=== PATIENT | male | born 1945 | race African-American/Black ===

== ENCOUNTER 2023-08-25 10:47 | Inpatient (IN) | payer OTHER ==
[2023-08-25] MEDS: LACTATED RINGERS SOLUTION 1000 ML INFUS.BAG IV ONE (12:00)
[2023-08-25 12:14] LABS: BASO % 0.6 % (0-2.0); EOS % 1.2 % (0-4.5); HEMATOCRIT 38.4 % (35.4-49); HEMOGLOBIN 12.6 GM/dL (11.7-16.9); MCH 27.8 pg (25.7-33.7); MCHC 32.9 g/dl (32.0-35.9); MEAN CELL VOLUME 84.6 fl (80-96); MEAN PLT VOLUME 7.5 fl (7.5-11.1); MONO % 3.1 % (3.8-10.2); NEUT % 75.1 % (42.8-82.8); PLATELET COUNT 360 10^3/uL (134-434); RBC 4.54 M/mm3 (4.00-5.60); RDW 17.3 % (11.9-15.9); WHITE BLOOD COUNT 7.3 K/mm3 (4.0-10.0)
[2023-08-25 12:44] LABS: VENOUS BASE EXCESS 0.9 mmol/L (-2-2); VENOUS O2 SATURATION 65.8 % (70-80); VENOUS PCO2 47.5 mmHg (38-52); VENOUS PH 7.369 (7.310-7.410)
[2023-08-25 13:05] LABS: INR 1.05 (0.83-1.09); PROTHROMBIN TIME (PATIENT) 12.2 SEC (9.7-13.0)
[2023-08-25 13:08] LABS: ACTIVATED PTT 33.1 SECONDS (25.2-36.5)
[2023-08-25 14:17] LABS: POTASSIUM 3.7 mmol/L (3.5-5.1)
[2023-08-25 14:18] LABS: ALBUMIN 3.2 g/dl (3.4-5.0); BILIRUBIN,TOTAL 0.8 mg/dL (0.2-1); BLOOD UREA NITROGEN 9.2 mg/dL (7-18); CALCIUM 8.6 mg/dL (8.5-10.1); CREATININE 0.5 mg/dL (0.55-1.3); MAGNESIUM 2.2 mg/dL (1.8-2.4); PHOSPHOROUS 2.8 mg/dL (2.5-4.9); TOT PROT 8.4 g/dl (6.4-8.2)
[2023-08-25 15:13] LABS: EPI CELLS 13 /uL (0-25.1); HYALINE CASTS 0 /uL (0-3.1); URINE APPEARANCE CLEAR; URINE BACTERIA 22 /uL (0-1359); URINE BILIRUBIN NEGATIVE (NEGATIVE); URINE COLOR YELLOW; URINE GLUCOSE (UA) NEGATIVE (NEGATIVE); URINE KETONE TRACE (NEGATIVE); URINE LEUK ESTERASE NEGATIVE (NEGATIVE); URINE NITRITE NEGATIVE (NEGATIVE); URINE PROTEIN NEGATIVE (NEGATIVE); URINE RBC 53 /uL (0-23.9); URINE UROBILINOGEN 0.2 mg/dL (0.2-1.0); URINE WBC 5 /uL (0-25.8)
[2023-08-25] MEDS ORDERED: levETIRAcetam 500 MG/5 ML INJECTION VIAL IVPB ONE (16:26)
[2023-08-25] MEDS: levETIRAcetam 500 MG/5 ML INJECTION VIAL IVPB ONE (18:01)
[2023-08-25] MEDS: levETIRAcetam 500 MG/5 ML INJECTION VIAL IVPB SCH (22:09)
[2023-08-25] MEDS: MINERAL OIL ENEMA 133 ML ENEMA RC SCH (22:33)
[2023-08-26] MEDS ORDERED: levETIRAcetam 500 MG/5 ML INJECTION VIAL IVPB SCH ×2 (02:08→10:00)
[2023-08-26] MEDS: levETIRAcetam 500 MG/5 ML INJECTION VIAL IVPB ONE ×2 (03:07→04:42)
[2023-08-26] MEDS ORDERED: levETIRAcetam 500 MG/5 ML INJECTION VIAL IVPB ONE (04:32)
[2023-08-26] MEDS: MINERAL OIL ENEMA 133 ML ENEMA RC ONE (09:47)
[2023-08-26] MEDS ORDERED: ZINC SULFATE 220 MG CAPSULE (FP) ONE (10:16)
[2023-08-26] MEDS: FERROUS SO4 325 MG TABLET (FP) PO SCH (10:18)
[2023-08-26] MEDS: POLYETHYLENE GLYCOL (HEALTHYLAX) 3350 17 GM PACKET PO SCH (10:18)
[2023-08-26] MEDS: levETIRAcetam 500 MG/5 ML INJECTION VIAL IVPB SCH (10:18)
[2023-08-26] MEDS: amLODIPine BESYLATE 5 MG TABLET (FP) PO SCH (10:18)
[2023-08-26] MEDS: ZINC SULFATE 220 MG CAPSULE (FP) PO SCH (10:18)
[2023-08-26] MEDS: FLUTICASONE PROP 0.05% 16 GM NASAL SPRAY NS SCH (10:46)
[2023-08-26 12:32] LABS: BASO % 0.8 % (0-2.0); EOS % 1.4 % (0-4.5); HEMATOCRIT 37.7 % (35.4-49); HEMOGLOBIN 12.1 GM/dL (11.7-16.9); LYMPH % 25.4 % (8-40); MCH 27.3 pg (25.7-33.7); MCHC 32.1 g/dl (32.0-35.9); MEAN CELL VOLUME 84.8 fl (80-96); MEAN PLT VOLUME 7.2 fl (7.5-11.1); NEUT % 67.4 % (42.8-82.8); PLATELET COUNT 314 10^3/uL (134-434); RBC 4.44 M/mm3 (4.00-5.60); RDW 17.3 % (11.9-15.9)
[2023-08-26 13:12] LABS: POTASSIUM 3.7 mmol/L (3.5-5.1)
[2023-08-26 13:19] LABS: ALBUMIN 2.9 g/dl (3.4-5.0); BLOOD UREA NITROGEN 5.9 mg/dL (7-18)
[2023-08-26 13:20] LABS: CALCIUM 8.5 mg/dL (8.5-10.1); MAGNESIUM 1.6 mg/dL (1.8-2.4)
[2023-08-26 13:21] LABS: CREATININE 0.4 mg/dL (0.55-1.3); PHOSPHOROUS 3.3 mg/dL (2.5-4.9)
[2023-08-26 13:22] LABS: BILIRUBIN,TOTAL 0.9 mg/dL (0.2-1); TOT PROT 7.6 g/dl (6.4-8.2)
[2023-08-26] MEDS: ENOXAPARIN NA (PORCINE) 40 MG/0.4 ML DISP.SYRIN SQ SCH (16:30)
[2023-08-26] MEDS ORDERED: ENOXAPARIN NA (PORCINE) 40 MG/0.4 ML DISP.SYRIN SQ ONE (16:53)
[2023-08-26 23:39] VITALS: BMI 13.6
[2023-08-27] MEDS: levETIRAcetam 500 MG/5 ML ORAL SOLUTION (UNIT-DOSE CUPS) PO SCH (09:58)
[2023-08-27 10:43] LABS: POTASSIUM 4.4 mmol/L (3.5-5.1)
[2023-08-27 10:45] LABS: BASO % 0.7 % (0-2.0); EOS % 2.2 % (0-4.5); HEMATOCRIT 43.3 % (35.4-49); HEMOGLOBIN 13.9 GM/dL (11.7-16.9); LYMPH % 28.6 % (8-40); MCH 27.2 pg (25.7-33.7); MCHC 32.1 g/dl (32.0-35.9); MEAN CELL VOLUME 84.8 fl (80-96); MEAN PLT VOLUME 8.4 fl (7.5-11.1); MONO % 4.6 % (3.8-10.2); NEUT % 63.9 % (42.8-82.8); PLATELET COUNT 324 10^3/uL (134-434); RBC 5.11 M/mm3 (4.00-5.60); RDW 17.8 % (11.9-15.9); WHITE BLOOD COUNT 6.5 K/mm3 (4.0-10.0)
[2023-08-27 10:53] LABS: ALBUMIN 3.1 g/dl (3.4-5.0); BLOOD UREA NITROGEN 11.8 mg/dL (7-18); CALCIUM 9.3 mg/dL (8.5-10.1)
[2023-08-27 10:56] LABS: CREATININE 0.4 mg/dL (0.55-1.3); PHOSPHOROUS 3.6 mg/dL (2.5-4.9)
[2023-08-27 10:57] LABS: BILIRUBIN,TOTAL 1.1 mg/dL (0.2-1); TOT PROT 8.4 g/dl (6.4-8.2)
[2023-08-27 15:54] VITALS: BP 122/96; PULSE 89; RESP 20; TEMP 97.5
== END 2023-08-27 16:47 | disposition home or self-care (01) | DRG 100 ==
LOC: JER 10:47 → JERBED 18:01 → OBSVTOIN 22:36 → J4W 08-26 21:02
PROVIDERS: ADMIT Internal Medicine; ATTEND Internal Medicine
DX: R56.9 Unspecified convulsions (principal); L89.153 Pressure ulcer of sacral region, stage 3; G91.9 Hydrocephalus, unspecified; K59.00 Constipation, unspecified; I10 Essential (primary) hypertension; Z87.820 Personal history of traumatic brain injury; E11.9 Type 2 diabetes mellitus without complications
CPT/HCPCS: 0241U-QW; 36415; 70450-TC; 70551-TC; 71045-TC-FY; 74177-TC; 80053; 80061; 81003; 82803; 83605; 83690; 83735; 84100; 84443; 84484; 85025; 85610; 85730; 86850; 86900; 86901; 87040; 87086; 93005; 93010; 99285-25; G0378; Q9967

== ENCOUNTER 2023-10-16 21:57 | Inpatient (IN) | payer OTHER ==
[2023-10-16] MEDS ORDERED: MAGNESIUM HYDROX 2400MG/30ML ORAL SUSPENSION 30 ML CUP ONE (22:04)
[2023-10-17 00:51] LABS: BASO % 0.5 % (0-2.0); LYMPH % 29.1 % (8-40); MCH 27.3 pg (25.7-33.7); MCHC 32.4 g/dl (32.0-35.9); MEAN CELL VOLUME 84.3 fl (80-96); MEAN PLT VOLUME 7.6 fl (7.5-11.1); MONO % 6.4 % (3.8-10.2); PLATELET COUNT 322 10^3/uL (134-434); RBC 4.39 M/mm3 (4.00-5.60); RDW 17.1 % (11.9-15.9); WHITE BLOOD COUNT 7.3 K/mm3 (4.0-10.0)
[2023-10-17 01:05] LABS: CHLORIDE 105 mmol/L (98-107); SODIUM 139 mmol/L (136-145)
[2023-10-17 01:09] LABS: ALBUMIN 2.8 g/dl (3.4-5.0); BLOOD UREA NITROGEN 12.2 mg/dL (7-18); CALCIUM 8.4 mg/dL (8.5-10.1); CO2 27 mmol/L (21-32); GLUCOSE,RANDOM 118 mg/dL (74-106)
[2023-10-17 01:11] LABS: CREATININE 0.4 mg/dL (0.55-1.3); SGOT/AST 14 U/L (15-37); SGPT/ALT 15 U/L (13-61)
[2023-10-17 01:13] LABS: BILIRUBIN,TOTAL 0.4 mg/dL (0.2-1); TOT PROT 6.7 g/dl (6.4-8.2)
[2023-10-17 01:15] LABS: ALK PHOS 69 U/L (45-117)
[2023-10-17 01:16] LABS: ANION GAP 6 mmol/L (4-13); POTASSIUM 2.8 mmol/L (3.5-5.1)
[2023-10-17] MEDS ORDERED: POTASSIUM CHLORIDE ORAL LIQUID 20 MEQ/15 ML ONE (01:32)
[2023-10-17] MEDS: POTASSIUM CHLORIDE ORAL LIQUID 20 MEQ/15 ML PO ONE (02:17)
[2023-10-17] MEDS: KCL 10 MEQ IVPB 10 MEQ/100 ML INFUS.BAG IVPB SCH (02:17)
[2023-10-17] MEDS ORDERED: AMPICILLIN NA/SULBACTAM NA 1.5 GM VIAL ONE (02:53)
[2023-10-17] MEDS: AMPICILLIN NA/SULBACTAM NA 1.5 GM in SODIUM CHLORIDE 100 ML IVPB ONE (03:17)
[2023-10-17] MEDS ORDERED: KCL 10 MEQ IVPB 10 MEQ/100 ML INFUS.BAG IVPB ONE ×2 (03:45→04:58)
[2023-10-17 03:56] LABS: EPI CELLS 16 /uL (0-25.1); HYALINE CASTS 1 /uL (0-3.1); PH,URINE 6.5 (5.0-8.0); URINE APPEARANCE CLEAR; URINE BACTERIA 6 /uL (0-1359); URINE BILIRUBIN NEGATIVE (NEGATIVE); URINE COLOR YELLOW; URINE GLUCOSE (UA) NEGATIVE (NEGATIVE); URINE KETONE TRACE (NEGATIVE); URINE LEUK ESTERASE NEGATIVE (NEGATIVE); URINE NITRITE NEGATIVE (NEGATIVE); URINE PROTEIN TRACE (NEGATIVE); URINE RBC 155 /uL (0-23.9); URINE UROBILINOGEN 0.2 mg/dL (0.2-1.0); URINE WBC 12 /uL (0-25.8)
[2023-10-17 04:47] LABS: MAGNESIUM 1.8 mg/dL (1.8-2.4)
[2023-10-17] MEDS: ACETAMINOPHEN 1000 MG/100 ML BAG IVPB PRN (04:47)
[2023-10-17] MEDS: SODIUM CHLORIDE 1,000 ML with POTASSIUM CHLORIDE 40 MEQ IV SCH (04:47)
[2023-10-17] MEDS: levETIRAcetam 500 MG/5 ML INJECTION VIAL IVPB ONE ×2 (06:37→08:14)
[2023-10-17 07:44] LABS: HEMOGLOBIN 14.3 GM/dL (11.7-16.9); MCH 27.4 pg (25.7-33.7); MCHC 32.4 g/dl (32.0-35.9); MEAN CELL VOLUME 84.6 fl (80-96); MEAN PLT VOLUME 7.6 fl (7.5-11.1); PLATELET COUNT 321 10^3/uL (134-434); RDW 16.9 % (11.9-15.9); WHITE BLOOD COUNT 7.5 K/mm3 (4.0-10.0)
[2023-10-17 07:51] LABS: BLOOD UREA NITROGEN 8.3 mg/dL (7-18); CALCIUM 8.6 mg/dL (8.5-10.1); MAGNESIUM 1.9 mg/dL (1.8-2.4)
[2023-10-17 07:55] LABS: BILIRUBIN,TOTAL 0.4 mg/dL (0.2-1); CREATININE 0.4 mg/dL (0.55-1.3); PHOSPHOROUS 2.3 mg/dL (2.5-4.9); TOT PROT 7.4 g/dl (6.4-8.2)
[2023-10-17 08:06] LABS: POTASSIUM 4.3 mmol/L (3.5-5.1)
[2023-10-17] MEDS: AMPICILLIN NA/SULBACTAM NA 1.5 GM in SODIUM CHLORIDE 100 ML IVPB SCH (09:05)
[2023-10-17] MEDS ORDERED: ENOXAPARIN NA (PORCINE) 40 MG/0.4 ML DISP.SYRIN SQ SCH (10:00)
[2023-10-17] MEDS: MAGNESIUM SULFATE IN WATER 2 GM/50 ML IVPB IVPB ONE (11:22)
[2023-10-17] MEDS: NAPH,MB-DB/K PH,MBDB POWDER PACKET PO ONE (11:29)
[2023-10-17] MEDS: VANCOMYCIN ORAL SOLUTION 125 MG/2.5 ML PO SCH ×2 (11:30→18:29)
[2023-10-17] MEDS: POVIDONE-IODINE OINTMENT 10% - 28.4 GM TUBE TP SCH (11:31)
[2023-10-17 12:15] LABS: POTASSIUM 3.9 mmol/L (3.5-5.1)
[2023-10-17 12:17] LABS: BLOOD UREA NITROGEN 6.6 mg/dL (7-18); CALCIUM 8.6 mg/dL (8.5-10.1); MAGNESIUM 2.1 mg/dL (1.8-2.4)
[2023-10-17 12:21] LABS: CREATININE 0.3 mg/dL (0.55-1.3)
[2023-10-17] MEDS: POTASSIUM CHLORIDE 40 MEQ in SODIUM CHLORIDE 1,000 ML IV SCH (12:25)
[2023-10-17] MEDS: levETIRAcetam 500 MG/5 ML INJECTION VIAL IVPB SCH (12:25)
[2023-10-17] MEDS: KETOROLAC TROMETHAMINE 15 MG/ML VIAL IVPUSH ONE (16:41)
[2023-10-18 07:47] LABS: BASO % 0.8 % (0-2.0); EOS % 3.8 % (0-4.5); HEMATOCRIT 34.8 % (35.4-49); HEMOGLOBIN 11.7 GM/dL (11.7-16.9); LYMPH % 34.1 % (8-40); MCH 28.1 pg (25.7-33.7); MCHC 33.5 g/dl (32.0-35.9); MEAN CELL VOLUME 83.9 fl (80-96); MEAN PLT VOLUME 7.7 fl (7.5-11.1); MONO % 5.4 % (3.8-10.2); NEUT % 55.9 % (42.8-82.8); PLATELET COUNT 316 10^3/uL (134-434); RBC 4.15 M/mm3 (4.00-5.60); RDW 17.4 % (11.9-15.9); WHITE BLOOD COUNT 6.4 K/mm3 (4.0-10.0)
[2023-10-18 08:02] LABS: POTASSIUM 4.3 mmol/L (3.5-5.1)
[2023-10-18 08:06] LABS: BLOOD UREA NITROGEN 3.2 mg/dL (7-18); CALCIUM 8.5 mg/dL (8.5-10.1)
[2023-10-18 08:07] LABS: ALBUMIN 2.6 g/dl (3.4-5.0)
[2023-10-18 08:10] LABS: BILIRUBIN,TOTAL 0.5 mg/dL (0.2-1); CREATININE 0.3 mg/dL (0.55-1.3)
[2023-10-18 08:11] LABS: TOT PROT 6.6 g/dl (6.4-8.2)
[2023-10-18] MEDS: amLODIPine BESYLATE 5 MG TABLET (FP) PO SCH (09:37)
[2023-10-18] MEDS: POLYETHYLENE GLYCOL (HEALTHYLAX) 3350 17 GM PACKET PO SCH (10:24)
[2023-10-19 07:27] LABS: BASO % 0.6 % (0-2.0); EOS % 4.1 % (0-4.5); HEMATOCRIT 33.8 % (35.4-49); HEMOGLOBIN 11.1 GM/dL (11.7-16.9); LYMPH % 26.9 % (8-40); MCH 27.9 pg (25.7-33.7); MCHC 32.9 g/dl (32.0-35.9); MEAN CELL VOLUME 84.9 fl (80-96); MEAN PLT VOLUME 7.9 fl (7.5-11.1); MONO % 7.1 % (3.8-10.2); NEUT % 61.3 % (42.8-82.8); PLATELET COUNT 335 10^3/uL (134-434); RBC 3.99 M/mm3 (4.00-5.60); RDW 17.1 % (11.9-15.9)
[2023-10-19 07:53] LABS: POTASSIUM 3.7 mmol/L (3.5-5.1)
[2023-10-19 08:08] LABS: ALBUMIN 2.6 g/dl (3.4-5.0); CALCIUM 8.3 mg/dL (8.5-10.1)
[2023-10-19 08:10] LABS: BLOOD UREA NITROGEN 5.6 mg/dL (7-18)
[2023-10-19 08:11] LABS: CREATININE 0.3 mg/dL (0.55-1.3)
[2023-10-19 08:13] LABS: BILIRUBIN,TOTAL 0.3 mg/dL (0.2-1); TOT PROT 6.4 g/dl (6.4-8.2)
[2023-10-19] MEDS: NYSTATIN 100,000 UNIT/GM TOPICAL CREAM 15 GM TUBE TP SCH (13:07)
[2023-10-19 15:41] VITALS: BMI 13.4
[2023-10-19] MEDS: levETIRAcetam 500 MG TABLET (FP) PO SCH (15:45)
[2023-10-19] MEDS: AMINO ACIDS/PROTEIN HYDROLYS 30 ML LIQUID.PKT PO SCH (17:48)
[2023-10-20 07:12] LABS: BASO % 0.4 % (0-2.0); EOS % 3.1 % (0-4.5); HEMATOCRIT 33.3 % (35.4-49); HEMOGLOBIN 10.9 GM/dL (11.7-16.9); LYMPH % 31.2 % (8-40); MCH 27.8 pg (25.7-33.7); MCHC 32.7 g/dl (32.0-35.9); MEAN CELL VOLUME 85.1 fl (80-96); MEAN PLT VOLUME 7.7 fl (7.5-11.1); MONO % 7.2 % (3.8-10.2); NEUT % 58.1 % (42.8-82.8); PLATELET COUNT 311 10^3/uL (134-434); RBC 3.92 M/mm3 (4.00-5.60); RDW 17.3 % (11.9-15.9)
[2023-10-20 07:25] LABS: POTASSIUM 3.7 mmol/L (3.5-5.1)
[2023-10-20 07:33] LABS: ALBUMIN 2.5 g/dl (3.4-5.0); BLOOD UREA NITROGEN 6.9 mg/dL (7-18); CALCIUM 8.3 mg/dL (8.5-10.1)
[2023-10-20 07:36] LABS: CREATININE 0.3 mg/dL (0.55-1.3)
[2023-10-20 07:38] LABS: BILIRUBIN,TOTAL 0.5 mg/dL (0.2-1); TOT PROT 6.3 g/dl (6.4-8.2)
[2023-10-20] MEDS: ZINC SULFATE 220 MG CAPSULE (FP) PO SCH (09:40)
[2023-10-20] MEDS: ASCORBIC ACID 500 MG TABLET (FP) PO SCH (09:40)
[2023-10-20] MEDS: MULTIVITAMINS (DAILY MVI) TABLET (FP) PO SCH (09:40)
[2023-10-20 11:53] VITALS: BP 124/69; PULSE 67; RESP 16; TEMP 97.9
== END 2023-10-20 11:24 | disposition home or self-care (01) | DRG 388 ==
LOC: JER 21:57 → JERBED 10-17 01:33 → J4W 10-17 06:17
PROVIDERS: ADMIT Internal Medicine; ATTEND Internal Medicine
DX: K56.41 Fecal impaction (principal); L89.154 Pressure ulcer of sacral region, stage 4; R64 Cachexia; E44.0 Moderate protein-calorie malnutrition; Z68.1 Body mass index [BMI] 19.9 or less, adult; E11.9 Type 2 diabetes mellitus without complications; R56.9 Unspecified convulsions; I10 Essential (primary) hypertension; E87.6 Hypokalemia
CPT/HCPCS: 0241U-QW; 36415; 74177-TC; 80048; 80053; 81003; 82272; 83605; 83690; 83735; 84100; 84484; 85025; 85027; 87045; 87046; 87086; 87324; 87425; 87449; 87493; 87798; 93005; 93010; 99285-25; J0131; Q9967

== ENCOUNTER 2023-12-16 08:19 | Inpatient (IN) | payer OTHER ==
[2023-12-16] MEDS ORDERED: ACETAMINOPHEN INJECTION 100 ML IVPB ONE (10:03)
[2023-12-16] MEDS: ACETAMINOPHEN 1000 MG/100 ML BAG IVPB ONE (10:09)
[2023-12-16 10:10] LABS: BASO % 0.7 % (0-2.0); EOS % 2.9 % (0-4.5); HEMOGLOBIN 12.1 GM/dL (11.7-16.9); LYMPH % 16.6 % (8-40); MCH 27.9 pg (25.7-33.7); MCHC 31.8 g/dl (32.0-35.9); MEAN CELL VOLUME 87.6 fl (80-96); MEAN PLT VOLUME 7.6 fl (7.5-11.1); MONO % 8.7 % (3.8-10.2); NEUT % 71.1 % (42.8-82.8); PLATELET COUNT 283 10^3/uL (134-434); RBC 4.34 M/mm3 (4.00-5.60); RDW 16.1 % (11.9-15.9); WHITE BLOOD COUNT 14.8 K/mm3 (4.0-10.0)
[2023-12-16 10:25] LABS: ALBUMIN 2.8 g/dl (3.4-5.0); CALCIUM 8.4 mg/dL (8.5-10.1)
[2023-12-16 10:26] LABS: BLOOD UREA NITROGEN 33.7 mg/dL (7-18); MAGNESIUM 2.5 mg/dL (1.8-2.4)
[2023-12-16 10:28] LABS: CREATININE 2.9 mg/dL (0.55-1.3)
[2023-12-16 10:30] LABS: TOT PROT 7.2 g/dl (6.4-8.2)
[2023-12-16 11:00] LABS: POTASSIUM 4.2 mmol/L (3.5-5.1)
[2023-12-16 11:01] LABS: CALCIUM 8.6 mg/dL (8.5-10.1)
[2023-12-16 11:05] LABS: CREATININE 2.9 mg/dL (0.55-1.3)
[2023-12-16 11:18] LABS: URINE APPEARANCE CLEAR; URINE BILIRUBIN NEGATIVE (NEGATIVE); URINE COLOR YELLOW; URINE GLUCOSE (UA) TRACE (NEGATIVE); URINE KETONE NEGATIVE (NEGATIVE); URINE LEUK ESTERASE NEGATIVE (NEGATIVE); URINE NITRITE NEGATIVE (NEGATIVE); URINE PROTEIN TRACE (NEGATIVE); URINE UROBILINOGEN 0.2 mg/dL (0.2-1.0)
[2023-12-16] MEDS: SODIUM CHLORIDE 1,000 ML IV SCH (16:58)
[2023-12-16] MEDS: PIPERACILLIN/TAZOB 2.25 GM 2.25 GM in DEXTROSE 5%-WATER - 50 ML IVPB SCH (18:42)
[2023-12-16] MEDS: HEPARIN NA (PORCINE) 5,000 UNITS/ML 1ML VIAL SQ SCH (22:32)
[2023-12-16] MEDS: POLYETHYLENE GLYCOL (HEALTHYLAX) 3350 17 GM PACKET PO SCH (22:32)
[2023-12-16] MEDS: INSULIN ASPART SLIDING SCALE (NOVOLOG) 1 VIAL SQ SCH (22:32)
[2023-12-17 08:31] LABS: BASO % 0.6 % (0-2.0); EOS % 5.2 % (0-4.5); HEMATOCRIT 34.4 % (35.4-49); HEMOGLOBIN 11.1 GM/dL (11.7-16.9); LYMPH % 17.4 % (8-40); MCH 28.2 pg (25.7-33.7); MCHC 32.4 g/dl (32.0-35.9); MEAN CELL VOLUME 86.9 fl (80-96); MEAN PLT VOLUME 7.8 fl (7.5-11.1); MONO % 4.2 % (3.8-10.2); NEUT % 72.6 % (42.8-82.8); PLATELET COUNT 252 10^3/uL (134-434); RBC 3.96 M/mm3 (4.00-5.60); RDW 15.9 % (11.9-15.9); WHITE BLOOD COUNT 8.4 K/mm3 (4.0-10.0)
[2023-12-17 08:42] LABS: POTASSIUM 3.3 mmol/L (3.5-5.1)
[2023-12-17 08:44] LABS: BLOOD UREA NITROGEN 19.1 mg/dL (7-18); CALCIUM 8.4 mg/dL (8.5-10.1)
[2023-12-17 08:45] LABS: ALBUMIN 2.6 g/dl (3.4-5.0)
[2023-12-17 08:47] LABS: PHOSPHOROUS 4.1 mg/dL (2.5-4.9)
[2023-12-17 08:48] LABS: CREATININE 0.8 mg/dL (0.55-1.3)
[2023-12-17 08:49] LABS: BILIRUBIN,TOTAL 1.1 mg/dL (0.2-1); TOT PROT 6.6 g/dl (6.4-8.2)
[2023-12-17] MEDS ORDERED: PIPERACILLIN/TAZOBACTAM 2.25 GM VIAL IVPB ONE (09:36)
[2023-12-17] MEDS: amLODIPine BESYLATE 5 MG TABLET (FP) PO SCH (09:40)
[2023-12-17] MEDS: DOCUSATE SODIUM 100 MG CAPSULE (FP) PO SCH (09:40)
[2023-12-17] MEDS: POTASSIUM CHLORIDE ORAL LIQUID 20 MEQ/15 ML PO ONE ×2 (13:55→17:19)
[2023-12-17 14:14] VITALS: BMI 14.3
[2023-12-17] MEDS: MULTIVITAMINS (DAILY MVI) TABLET (FP) PO SCH (14:42)
[2023-12-17] MEDS: TAMSULOSIN HCL 0.4 MG CAP PO SCH (14:42)
[2023-12-17] MEDS: POTASSIUM CHLORIDE 10 MEQ in SODIUM CHLORIDE 1,000 ML IV SCH (15:50)
[2023-12-17] MEDS: AMINO ACIDS/PROTEIN HYDROLYS 30 ML LIQUID.PKT PO SCH (17:19)
[2023-12-17] MEDS: ASCORBIC ACID 500 MG TABLET (FP) PO SCH (21:47)
[2023-12-18 08:38] LABS: POTASSIUM 3.4 mmol/L (3.5-5.1)
[2023-12-18 08:54] LABS: BASO % 0.5 % (0-2.0); EOS % 3.7 % (0-4.5); HEMATOCRIT 34.3 % (35.4-49); HEMOGLOBIN 10.9 GM/dL (11.7-16.9); LYMPH % 18.6 % (8-40); MCH 27.8 pg (25.7-33.7); MCHC 31.8 g/dl (32.0-35.9); MEAN CELL VOLUME 87.6 fl (80-96); MEAN PLT VOLUME 7.7 fl (7.5-11.1); MONO % 7.2 % (3.8-10.2); PLATELET COUNT 275 10^3/uL (134-434); RBC 3.91 M/mm3 (4.00-5.60); RDW 15.7 % (11.9-15.9)
[2023-12-18 09:01] LABS: CALCIUM 8.5 mg/dL (8.5-10.1)
[2023-12-18 09:02] LABS: ALBUMIN 2.6 g/dl (3.4-5.0); BLOOD UREA NITROGEN 11.5 mg/dL (7-18); MAGNESIUM 1.9 mg/dL (1.8-2.4)
[2023-12-18 09:05] LABS: CREATININE 0.5 mg/dL (0.55-1.3)
[2023-12-18 09:06] LABS: BILIRUBIN,TOTAL 0.6 mg/dL (0.2-1)
[2023-12-18 09:07] LABS: TOT PROT 6.5 g/dl (6.4-8.2)
[2023-12-18 10:44] LABS: BASO % 0.5 % (0-2.0); EOS % 2.5 % (0-4.5); HEMOGLOBIN 11.6 GM/dL (11.7-16.9); LYMPH % 15.5 % (8-40); MCH 28.6 pg (25.7-33.7); MCHC 32.3 g/dl (32.0-35.9); MEAN CELL VOLUME 88.7 fl (80-96); MEAN PLT VOLUME 7.5 fl (7.5-11.1); MONO % 7.2 % (3.8-10.2); NEUT % 74.3 % (42.8-82.8); PLATELET COUNT 241 10^3/uL (134-434); RBC 4.06 M/mm3 (4.00-5.60); RDW 15.7 % (11.9-15.9); WHITE BLOOD COUNT 7.5 K/mm3 (4.0-10.0)
[2023-12-18 11:02] LABS: POTASSIUM 3.6 mmol/L (3.5-5.1)
[2023-12-18 11:06] LABS: CALCIUM 8.5 mg/dL (8.5-10.1)
[2023-12-18 11:07] LABS: BLOOD UREA NITROGEN 10.3 mg/dL (7-18)
[2023-12-18 11:10] LABS: CREATININE 0.6 mg/dL (0.55-1.3)
[2023-12-18] MEDS: POTASSIUM CHLORIDE 10 MEQ in SODIUM CHLORIDE 0.45% 1,000 ML IVPB SCH (18:16)
[2023-12-19] MEDS: PIPERACILLIN/TAZOB 2.25 GM 2.25 GM in DEXTROSE 5%-WATER - 50 ML IVPB SCH (08:09)
[2023-12-19 09:20] LABS: POTASSIUM 3.5 mmol/L (3.5-5.1)
[2023-12-19 09:24] LABS: BASO % 0.5 % (0-2.0); EOS % 1.8 % (0-4.5); HEMATOCRIT 33.2 % (35.4-49); HEMOGLOBIN 11.1 GM/dL (11.7-16.9); LYMPH % 15.9 % (8-40); MCH 28.7 pg (25.7-33.7); MCHC 33.4 g/dl (32.0-35.9); MEAN CELL VOLUME 85.9 fl (80-96); MONO % 6.4 % (3.8-10.2); NEUT % 75.4 % (42.8-82.8); PLATELET COUNT 295 10^3/uL (134-434); RBC 3.87 M/mm3 (4.00-5.60); RDW 15.8 % (11.9-15.9); WHITE BLOOD COUNT 10.5 K/mm3 (4.0-10.0)
[2023-12-19 09:36] LABS: CALCIUM 8.1 mg/dL (8.5-10.1)
[2023-12-19 09:37] LABS: BLOOD UREA NITROGEN 10.9 mg/dL (7-18)
[2023-12-19 09:40] LABS: CREATININE 0.4 mg/dL (0.55-1.3)
[2023-12-19] MEDS: ACETAMINOPHEN 325 MG TABLET (FP) PO PRN (17:35)
[2023-12-19 19:46] LABS: EPI CELLS 5 /uL (0-25.1); HYALINE CASTS 1 /uL (0-3.1); PH,URINE 7.5 (5.0-8.0); URINE APPEARANCE CLEAR; URINE BACTERIA 5 /uL (0-1359); URINE BILIRUBIN NEGATIVE (NEGATIVE); URINE COLOR YELLOW; URINE GLUCOSE (UA) NEGATIVE (NEGATIVE); URINE KETONE NEGATIVE (NEGATIVE); URINE LEUK ESTERASE NEGATIVE (NEGATIVE); URINE NITRITE NEGATIVE (NEGATIVE); URINE PROTEIN 2+ (NEGATIVE); URINE RBC 132 /uL (0-23.9); URINE WBC 7 /uL (0-25.8)
[2023-12-20] MEDS: FAMOTIDINE 20 MG/50 ML IVPB 20 MG/50 ML MG IVPB ONE (06:40)
[2023-12-20 08:15] LABS: BASO % 0.7 % (0-2.0); EOS % 0.4 % (0-4.5); HEMATOCRIT 33.2 % (35.4-49); HEMOGLOBIN 10.9 GM/dL (11.7-16.9); LYMPH % 10.2 % (8-40); MCH 28.6 pg (25.7-33.7); MCHC 32.8 g/dl (32.0-35.9); MEAN PLT VOLUME 8.2 fl (7.5-11.1); NEUT % 84.7 % (42.8-82.8); PLATELET COUNT 249 10^3/uL (134-434); RBC 3.81 M/mm3 (4.00-5.60); RDW 15.4 % (11.9-15.9); WHITE BLOOD COUNT 11.1 K/mm3 (4.0-10.0)
[2023-12-20 08:34] LABS: POTASSIUM 3.1 mmol/L (3.5-5.1)
[2023-12-20 08:38] LABS: CALCIUM 7.8 mg/dL (8.5-10.1)
[2023-12-20 08:39] LABS: ALBUMIN 2.4 g/dl (3.4-5.0); BLOOD UREA NITROGEN 13.2 mg/dL (7-18); MAGNESIUM 1.6 mg/dL (1.8-2.4)
[2023-12-20 08:42] LABS: BILIRUBIN,DIRECT 0.2 mg/dL (0.0-0.2); CREATININE 0.4 mg/dL (0.55-1.3); PHOSPHOROUS 2.9 mg/dL (2.5-4.9)
[2023-12-20 08:44] LABS: BILIRUBIN,TOTAL 0.7 mg/dL (0.2-1); TOT PROT 6.3 g/dl (6.4-8.2)
[2023-12-20] MEDS: PANTOPRAZOLE SODIUM 40 MG VIAL IVPUSH SCH (10:55)
[2023-12-20] MEDS: POTASSIUM CHLORIDE ORAL LIQUID 20 MEQ/15 ML PO ONE (11:10)
[2023-12-20] MEDS: KCL 10 MEQ IVPB 10 MEQ/100 ML INFUS.BAG IVPB SCH (13:41)
[2023-12-20] MEDS: MAGNESIUM OXIDE 400 MG TABLET (FP) PO ONE (15:21)
[2023-12-20] MEDS ORDERED: ACETAMINOPHEN 1000 MG/100 ML BAG IVPB PRN (16:56)
[2023-12-20] MEDS: ACETAMINOPHEN 1000 MG/100 ML BAG IVPB PRN (18:09)
[2023-12-20] MEDS: MAGNESIUM 1GM/D5W - 1 GM/100 ML IVPB IVPB ONE (19:01)
[2023-12-20 20:23] LABS: EPI CELLS 12 /uL (0-25.1); HYALINE CASTS 1 /uL (0-3.1); PH,URINE 7.5 (5.0-8.0); URINE APPEARANCE CLEAR; URINE BACTERIA 10 /uL (0-1359); URINE BILIRUBIN NEGATIVE (NEGATIVE); URINE COLOR YELLOW; URINE GLUCOSE (UA) NEGATIVE (NEGATIVE); URINE KETONE NEGATIVE (NEGATIVE); URINE LEUK ESTERASE NEGATIVE (NEGATIVE); URINE NITRITE NEGATIVE (NEGATIVE); URINE PROTEIN 2+ (NEGATIVE); URINE RBC 140 /uL (0-23.9); URINE WBC 15 /uL (0-25.8)
[2023-12-21 08:46] LABS: BASO % 0.4 % (0-2.0); EOS % 2.8 % (0-4.5); HEMATOCRIT 32.6 % (35.4-49); HEMOGLOBIN 10.8 GM/dL (11.7-16.9); LYMPH % 16.2 % (8-40); MCH 28.6 pg (25.7-33.7); MCHC 33.1 g/dl (32.0-35.9); MEAN CELL VOLUME 86.3 fl (80-96); MEAN PLT VOLUME 7.6 fl (7.5-11.1); MONO % 5.7 % (3.8-10.2); NEUT % 74.9 % (42.8-82.8); PLATELET COUNT 293 10^3/uL (134-434); RBC 3.78 M/mm3 (4.00-5.60); RDW 15.6 % (11.9-15.9); WHITE BLOOD COUNT 8.5 K/mm3 (4.0-10.0)
[2023-12-21 09:08] LABS: POTASSIUM 3.3 mmol/L (3.5-5.1)
[2023-12-21 09:25] LABS: BLOOD UREA NITROGEN 6.2 mg/dL (7-18); CALCIUM 8.5 mg/dL (8.5-10.1); MAGNESIUM 1.8 mg/dL (1.8-2.4)
[2023-12-21 09:28] LABS: CREATININE 0.3 mg/dL (0.55-1.3)
[2023-12-21] MEDS: KCL 10 MEQ IVPB 10 MEQ/100 ML INFUS.BAG IVPB SCH (10:11)
[2023-12-21] MEDS ORDERED: ARTIFICIAL TEARS OPHTHALMIC DROPS OU PRN (18:31)
[2023-12-21] MEDS: AMINO ACIDS 4.25%/D5W 1,000 ML IV SCH (18:33)
[2023-12-21] MEDS: cloNIDine-TTS 0.1 MG/24 HRS PATCH.TDWK TD SCH (21:59)
[2023-12-22 09:11] LABS: BASO % 0.7 % (0-2.0); EOS % 4.4 % (0-4.5); HEMATOCRIT 31.8 % (35.4-49); HEMOGLOBIN 10.7 GM/dL (11.7-16.9); LYMPH % 21.2 % (8-40); MCH 28.9 pg (25.7-33.7); MCHC 33.8 g/dl (32.0-35.9); MEAN CELL VOLUME 85.5 fl (80-96); MEAN PLT VOLUME 7.8 fl (7.5-11.1); MONO % 6.8 % (3.8-10.2); NEUT % 66.9 % (42.8-82.8); PLATELET COUNT 379 10^3/uL (134-434); RBC 3.72 M/mm3 (4.00-5.60); RDW 14.9 % (11.9-15.9); WHITE BLOOD COUNT 7.6 K/mm3 (4.0-10.0)
[2023-12-22 09:32] LABS: POTASSIUM 3.2 mmol/L (3.5-5.1)
[2023-12-22 09:40] LABS: ALBUMIN 2.5 g/dl (3.4-5.0)
[2023-12-22 09:41] LABS: BLOOD UREA NITROGEN 6.8 mg/dL (7-18); CALCIUM 8.8 mg/dL (8.5-10.1)
[2023-12-22 09:43] LABS: CREATININE 0.3 mg/dL (0.55-1.3)
[2023-12-22 09:45] LABS: BILIRUBIN,TOTAL 0.8 mg/dL (0.2-1); TOT PROT 6.6 g/dl (6.4-8.2)
[2023-12-22] MEDS: POTASSIUM CHLORIDE ORAL LIQUID 20 MEQ/15 ML PO ONE (15:15)
[2023-12-22] MEDS: ENOXAPARIN NA (PORCINE) 40 MG/0.4 ML DISP.SYRIN SQ SCH (15:53)
[2023-12-23 09:55] LABS: BASO % 0.7 % (0-2.0); EOS % 3.9 % (0-4.5); HEMATOCRIT 31.8 % (35.4-49); HEMOGLOBIN 10.8 GM/dL (11.7-16.9); LYMPH % 21.3 % (8-40); MCH 29.2 pg (25.7-33.7); MCHC 33.9 g/dl (32.0-35.9); MEAN CELL VOLUME 86.2 fl (80-96); MEAN PLT VOLUME 7.6 fl (7.5-11.1); NEUT % 66.1 % (42.8-82.8); PLATELET COUNT 401 10^3/uL (134-434); RBC 3.68 M/mm3 (4.00-5.60); WHITE BLOOD COUNT 7.4 K/mm3 (4.0-10.0)
[2023-12-23 10:11] LABS: POTASSIUM 3.1 mmol/L (3.5-5.1)
[2023-12-23 10:19] LABS: CALCIUM 8.6 mg/dL (8.5-10.1)
[2023-12-23 10:20] LABS: ALBUMIN 2.6 g/dl (3.4-5.0); BLOOD UREA NITROGEN 13.4 mg/dL (7-18); MAGNESIUM 1.5 mg/dL (1.8-2.4)
[2023-12-23 10:23] LABS: CREATININE 0.4 mg/dL (0.55-1.3); PHOSPHOROUS 2.8 mg/dL (2.5-4.9)
[2023-12-23 10:24] LABS: BILIRUBIN,TOTAL 0.6 mg/dL (0.2-1)
[2023-12-23] MEDS: MAGNESIUM OXIDE 400 MG TABLET (FP) PO ONE (11:53)
[2023-12-23] MEDS: POTASSIUM CHLORIDE ORAL LIQUID 20 MEQ/15 ML PO SCH (11:54)
[2023-12-23] MEDS: SIMETHICONE 80 MG TAB.CHEW (FP) PO SCH (15:02)
[2023-12-24] MEDS: ACETAMINOPHEN 325 MG TABLET (FP) PO PRN (06:45)
[2023-12-24 09:47] LABS: BASO % 0.7 % (0-2.0); EOS % 4.1 % (0-4.5); HEMATOCRIT 31.3 % (35.4-49); HEMOGLOBIN 10.5 GM/dL (11.7-16.9); LYMPH % 22.9 % (8-40); MCH 28.7 pg (25.7-33.7); MCHC 33.5 g/dl (32.0-35.9); MEAN CELL VOLUME 85.8 fl (80-96); MEAN PLT VOLUME 7.8 fl (7.5-11.1); MONO % 8.8 % (3.8-10.2); NEUT % 63.5 % (42.8-82.8); PLATELET COUNT 403 10^3/uL (134-434); RBC 3.65 M/mm3 (4.00-5.60); RDW 14.9 % (11.9-15.9); WHITE BLOOD COUNT 8.1 K/mm3 (4.0-10.0)
[2023-12-24 12:00] LABS: POTASSIUM 4.1 mmol/L (3.5-5.1)
[2023-12-24 12:02] LABS: CALCIUM 8.1 mg/dL (8.5-10.1)
[2023-12-24 12:03] LABS: ALBUMIN 2.4 g/dl (3.4-5.0); BLOOD UREA NITROGEN 20.2 mg/dL (7-18); MAGNESIUM 1.5 mg/dL (1.8-2.4)
[2023-12-24 12:06] LABS: CREATININE 0.4 mg/dL (0.55-1.3); PHOSPHOROUS 2.6 mg/dL (2.5-4.9)
[2023-12-24 12:07] LABS: BILIRUBIN,TOTAL 0.4 mg/dL (0.2-1); TOT PROT 6.7 g/dl (6.4-8.2)
[2023-12-24] MEDS: TAMSULOSIN HCL 0.4 MG CAP PO ONE (16:53)
[2023-12-25] MEDS: TAMSULOSIN HCL 0.4 MG CAP PO SCH (09:27)
[2023-12-25 12:32] VITALS: BP 131/74; PULSE 82; RESP 17; TEMP 98.9
[2023-12-28] MEDS ORDERED: cloNIDine-TTS 0.1 MG/24 HRS PATCH.TDWK TD SCH (10:00)
== END 2023-12-25 13:15 | disposition left against medical advice (07) | DRG 388 ==
LOC: JER 08:19 → UNDOADMOB 13:18 → JERBED 13:18 → OBSVTOIN 16:46 → INTOOBSV 16:46 → JERBED 17:37 → J7W 17:37 → J5S 21:07 → J7W 21:07 → J5S 12-18 12:33 → OBSVTOIN 12-21 09:42 → J5S 12-22 20:09
PROVIDERS: ADMIT Internal Medicine; ATTEND Internal Medicine
DX: K56.7 Ileus, unspecified (principal); L89.153 Pressure ulcer of sacral region, stage 3; E44.0 Moderate protein-calorie malnutrition; Z68.1 Body mass index [BMI] 19.9 or less, adult; N17.9 Acute kidney failure, unspecified; R64 Cachexia; E87.1 Hypo-osmolality and hyponatremia; E11.9 Type 2 diabetes mellitus without complications; L89.611 Pressure ulcer of right heel, stage 1; E87.5 Hyperkalemia; G40.909 Epilepsy, unspecified, not intractable, without status epilepticus; I10 Essential (primary) hypertension; R33.9 Retention of urine, unspecified; D72.829 Elevated white blood cell count, unspecified; N13.9 Obstructive and reflux uropathy, unspecified; F03.90 Unspecified dementia, unspecified severity, without behavioral disturbance, psychotic disturbance, mood disturbance, and anxiety; K59.00 Constipation, unspecified; E87.6 Hypokalemia; Z87.820 Personal history of traumatic brain injury; Z89.612 Acquired absence of left leg above knee
CPT/HCPCS: 36415; 71045-TC-FY; 74019-TC-FY; 74176-TC; 76775-TC; 80048; 80053; 80076; 81003; 82962; 83036; 83735; 84100; 85025; 87040; 87086; 87899; 93005; 93010; 99285-25; E0186; G0378; J0131; J1644

== ENCOUNTER 2024-02-21 06:40 | Observation (INO) | payer OTHER ==
[2024-02-21] MEDS ORDERED: ACETAMINOPHEN 650 MG/20.3 ML ORAL SOLUTION (CUPS) ONE (08:52)
[2024-02-21] MEDS: ACETAMINOPHEN 650 MG/20.3 ML ORAL SOLUTION (CUPS) PO ONE (09:15)
[2024-02-21 09:28] LABS: EPI CELLS >36 /uL (0-25.1); HYALINE CASTS 0 /uL (0-3.1); URINE APPEARANCE TURBID; URINE BILIRUBIN 1+ (NEGATIVE); URINE COLOR DK YELLOW; URINE GLUCOSE (UA) NEGATIVE (NEGATIVE); URINE KETONE TRACE (NEGATIVE); URINE LEUK ESTERASE NEGATIVE (NEGATIVE); URINE NITRITE POSITIVE (NEGATIVE); URINE PROTEIN 3+ (NEGATIVE); URINE RBC 0 /uL (0-23.9); URINE UROBILINOGEN 0.2 mg/dL (0.2-1.0); URINE WBC 15 /uL (0-25.8)
[2024-02-21 09:33] LABS: URINE BACTERIA 222 /uL (0-1359)
[2024-02-21 09:55] LABS: BASO % 0.4 % (0-2.0); EOS % 1.2 % (0-4.5); HEMATOCRIT 34.4 % (35.4-49); HEMOGLOBIN 11.4 GM/dL (11.7-16.9); LYMPH % 10.4 % (8-40); MCHC 33.2 g/dl (32.0-35.9); MEAN CELL VOLUME 84.5 fl (80-96); MEAN PLT VOLUME 7.4 fl (7.5-11.1); MONO % 7.4 % (3.8-10.2); NEUT % 80.6 % (42.8-82.8); PLATELET COUNT 425 10^3/uL (134-434); RBC 4.07 M/mm3 (4.00-5.60); RDW 17.7 % (11.9-15.9); WHITE BLOOD COUNT 11.9 K/mm3 (4.0-10.0)
[2024-02-21] MEDS ORDERED: CEFTRIAXONE 1 GM/50 ML BAG ONE (10:10)
[2024-02-21 10:14] LABS: POTASSIUM 3.7 mmol/L (3.5-5.1)
[2024-02-21 10:17] LABS: CALCIUM 8.6 mg/dL (8.5-10.1)
[2024-02-21 10:19] LABS: ALBUMIN 2.5 g/dl (3.4-5.0); BLOOD UREA NITROGEN 36.6 mg/dL (7-18)
[2024-02-21 10:21] LABS: CREATININE 2.3 mg/dL (0.55-1.3)
[2024-02-21 10:23] LABS: BILIRUBIN,TOTAL 0.7 mg/dL (0.2-1); TOT PROT 7.3 g/dl (6.4-8.2)
[2024-02-21] MEDS: LACTATED RINGERS SOLUTION 1000 ML INFUS.BAG IV ONE (10:43)
[2024-02-21] MEDS ORDERED: ACETAMINOPHEN 1000 MG/100 ML BAG IVPB PRN (12:27)
[2024-02-21] MEDS: SODIUM CHLORIDE 1,000 ML IV SCH (14:05)
[2024-02-21 15:52] VITALS: BMI 14.0
[2024-02-21] MEDS: INSULIN ASPART SLIDING SCALE (NOVOLOG) 1 VIAL SQ SCH (16:36)
[2024-02-21] MEDS: SODIUM HYPOCHLORITE 0.25%- 473 ML BULK BOTTLE TP SCH (17:15)
[2024-02-21] MEDS: HEPARIN NA (PORCINE) 5,000 UNITS/ML 1ML VIAL SQ SCH (21:50)
[2024-02-21] MEDS ORDERED: levETIRAcetam 500 MG/5 ML ORAL SOLUTION (UNIT-DOSE CUPS) PO SCH (22:00)
[2024-02-22] MEDS: CEFTRIAXONE 1 GM in DEXTROSE 5%-WATER - 50 ML IVPB SCH (09:33)
[2024-02-22] MEDS: amLODIPine BESYLATE 5 MG TABLET (FP) PO SCH (09:33)
[2024-02-22] MEDS: PANTOPRAZOLE 20 MG TABLET PO SCH (09:33)
[2024-02-22] MEDS: FINASTERIDE 5 MG TABLET (FP) PO SCH (09:33)
[2024-02-22] MEDS: TAMSULOSIN HCL 0.4 MG CAP PO SCH (09:33)
[2024-02-22 09:49] LABS: POTASSIUM 3.3 mmol/L (3.5-5.1)
[2024-02-22 09:51] LABS: ALBUMIN 2.3 g/dl (3.4-5.0); CALCIUM 8.1 mg/dL (8.5-10.1)
[2024-02-22 09:52] LABS: BLOOD UREA NITROGEN 26.9 mg/dL (7-18)
[2024-02-22 09:56] LABS: BILIRUBIN,TOTAL 0.5 mg/dL (0.2-1); TOT PROT 6.7 g/dl (6.4-8.2)
[2024-02-22] MEDS: SODIUM CHLORIDE 1,000 ML IV SCH (10:06)
[2024-02-22 11:09] LABS: BASO % 0.5 % (0-2.0); EOS % 1.8 % (0-4.5); HEMATOCRIT 31.6 % (35.4-49); HEMOGLOBIN 10.3 GM/dL (11.7-16.9); LYMPH % 14.5 % (8-40); MCH 27.9 pg (25.7-33.7); MCHC 32.8 g/dl (32.0-35.9); MEAN CELL VOLUME 85.2 fl (80-96); MEAN PLT VOLUME 7.2 fl (7.5-11.1); MONO % 3.4 % (3.8-10.2); NEUT % 79.8 % (42.8-82.8); PLATELET COUNT 410 10^3/uL (134-434); RDW 18.2 % (11.9-15.9); WHITE BLOOD COUNT 9.9 K/mm3 (4.0-10.0)
[2024-02-22] MEDS: POTASSIUM CHLORIDE TABS 20 MEQ TABLET.ER (FP) PO ONE (13:13)
[2024-02-22 14:32] VITALS: BP 119/73; PULSE 94; RESP 18; TEMP 98.3
== END 2024-02-22 18:11 | disposition home or self-care (01) ==
LOC: JER 06:40 → JERBED 11:36 → UNDOADMOB 11:36 → OBSVTOIN 12:24 → INTOOBSV 12:24 → JERBED 12:40 → J5S 12:40 → JERBED 14:33 → J5S 14:33
PROVIDERS: ADMIT Internal Medicine
PROC: 0T2BX0Z Change Drainage Device in Bladder, External Approach (ICD-10-PCS; principal; 2024-02-21)
PROC: 3E03329 Introduction of Other Anti-infective into Peripheral Vein, Percutaneous Approach (ICD-10-PCS; 2024-02-21)
PROC: 3E023GC Introduction of Other Therapeutic Substance into Muscle, Percutaneous Approach (ICD-10-PCS; 2024-02-21)
PROC: 3E0337Z Introduction of Electrolytic and Water Balance Substance into Peripheral Vein, Percutaneous Approach (ICD-10-PCS; 2024-02-21)
PROC: 3E0337Z Introduction of Electrolytic and Water Balance Substance into Peripheral Vein, Percutaneous Approach (ICD-10-PCS; 2024-02-21)
DX: N39.0 Urinary tract infection, site not specified (principal); S31.000A Unspecified open wound of lower back and pelvis without penetration into retroperitoneum, initial encounter; S91.301A Unspecified open wound, right foot, initial encounter; X58.XXXA Exposure to other specified factors, initial encounter; Y93.9 Activity, unspecified; N17.9 Acute kidney failure, unspecified; Z46.6 Encounter for fitting and adjustment of urinary device; Z87.820 Personal history of traumatic brain injury; E11.9 Type 2 diabetes mellitus without complications; I10 Essential (primary) hypertension; R56.9 Unspecified convulsions; R33.9 Retention of urine, unspecified; R50.9 Fever, unspecified; Z89.512 Acquired absence of left leg below knee; E87.1 Hypo-osmolality and hyponatremia; N13.9 Obstructive and reflux uropathy, unspecified
CPT/HCPCS: 36415; 51702; 76775-TC; 80053; 81003; 82962; 83735; 84100; 85025; 87086; 87186; 93005; 93010; 96361; 96365; 96372; 96375; 99285-25; E0186; G0378; J1644